=== PATIENT | female | born 1970 | race Caucasian/White ===

== ENCOUNTER 2019-03-07 17:57 | Emergency (ER) | payer OTHER ==
[2019-03-07] MEDS ORDERED: Sodium Chloride 0.9% 1000 ML 1,000 ML IV STA (18:22)
[2019-03-07] MEDS ORDERED: Sodium Chloride 0.9% 1000 ML 1,000 ML ONE ×2 (18:26→18:58)
--- NOTE | 2019-03-07 18:29 | ERPHSYRPT ---
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 DENIES HEADACHE, WEAKNESS, BLURRED VISION. STATES SYMPTOMS RESOLVED AFTER 2 HOURS. PATIENT COMPLAINS OF PRODUCTIVE COUGH WHITE SPUTUM X 3 WEEKS. Timing/Duration: today Severity: mild Character of Deficits: altered sensation, other (TRANSIENT BILATERAL FINGER TIP NUMBNESS) Deficits: no difficulties Baseline/Normal Cognition: alert oriented x 3 Current Cognition: alert oriented x 3 Baseline Gait: walks w/o assistance Associated Symptoms: other (PRODUCTIVE COUGH) Allergies/Adverse Reactions: No Known Drug Allergies Allergy (Verified 03/07/19 18:09) - Review of Systems Constitutional: No Fever, No Chills Eyes: No Symptoms Ears, Nose, & Throat: No Symptoms Respiratory: No Cough, No Dyspnea Cardiac: No Symptoms, No Chest Pain, No Edema, No Syncope Abdominal/Gastrointestinal: No Abdominal Pain, No Nausea, No Vomiting, No Diarrhea Genitourinary Symptoms: No Symptoms, No Dysuria Musculoskeletal: No Symptoms, No Back Pain, No Neck Pain Skin: No Rash Neurological: Parasthesia (OVER FINGER TIPS), No Dizziness, No Focal Weakness, No Sensory Changes Psychological: No Symptoms Endocrine: No Symptoms Hematologic/Lymphatic: No Symptoms All Other Systems: Reviewed and Negative - Past Medical History Pertinent Past Medical History: No - Past Surgical History Past Surgical History: Yes Female Surgical History: Tubal Ligation - Social History Smoking Status: Current every day smoker How long have you smoked: 30 years Exposure to second hand smoke: Yes Drug Use: none Patient Lives Alone: No - Female History Hx Now: No (tubal) - Nursing Vital Signs Nursing Vital Signs: Initial Vital Signs Temperature 100.0 F 03/07/19 18:01 Pulse Rate 112 H 03/07/19 18:01 Blood Pressure 159/96 03/07/19 18:01 O2 Sat by Pulse Oximetry 99 03/07/19 18:01 Pain Scale Pain Intensity 0 - Physical Exam General Appearance: no apparent distress, alert Eye Exam: bilateral eye: PERRL, EOMI Ears, Nose, Throat Exam: normal ENT inspection, moist mucous membranes Neck Exam: normal inspection, non-tender, supple Respiratory: normal breath sounds, lungs clear, airway intact, No respiratory distress Cardiovascular: regular rate/rhythm, No edema Gastrointestinal: soft, No tenderness, No distention Back Exam: normal inspection Extremity Exam: normal inspection, No pedal edema Peripheral Pulses: carotid (R): 2+, carotid (L): 2+, femoral (R): 2+, femoral (L ): 2+, dorsalis-pedis (R): 2+, dorsalis-pedis (L): 2+ 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, 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 Exam: normal hearing, normal speech, tongue midline Coordination/Gait: normal finger to nose, normal gait DTR: bicep (R): 2+, bicep (L): 2+, tricep (R): 2+, tricep (L): 2+, knee (R): 2+ , knee (L): 2+, ankle (R): 2+, ankle (L): 2+ Skin Exam: normal color, warm, dry, No rash SpO2: 99 - Course EKG Interpreted by Me: RATE, Sinus Rhythm, NORMAL AXIS, Other (RATE 71, LATERAL FLAT ST WAVE CHANGES) - Radiology Exams Chest X-ray Interpretation: Interpreted by me, Negative, No Infiltrates Ordered Tests: Active Orders 24 hr Category Date Time Status 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 STAT Care 03/07/19 18:22 Active EKG-ER Only STAT Care 03/07/19 18:22 Active IV Insertion STAT Care 03/07/19 18:22 Active CHEST 1 VIEW (PORTABLE) Stat Exams 03/07/19 19:59 Ordered BLOOD CULTURE Stat Lab 03/07/19 19:00 Received BMP Stat Lab 03/07/19 18:40 Completed CBC W DIFF Stat Lab 03/07/19 18:40 Completed Lactic Acid Stat Lab 03/07/19 20:48 Completed Lactic Acid Urgent Lab 03/07/19 18:35 Completed UA W/RFX UR CULTURE Stat Lab 03/07/19 18:40 Completed Urine Triage Profile Stat Lab 03/07/19 18:40 Completed VENOUS BLOOD GAS Stat Lab 03/07/19 18:35 Completed Medication Summary Generic Name Dose Route Start Last Admin Trade Name Jack PRN Reason Stop Dose Admin Sodium Chloride 1,000 mls @ 999 mls/hr 03/07/19 18:30 03/07/19 20:42 Sodium Chloride 0.9% 1000 Ml IV 03/07/19 20:30 Infused .Q1H1M GIULIA Infusion Discontinued Medications Generic Name Dose Route Start Last Admin Trade Name Jack PRN Reason Stop Dose Admin Acetaminophen 650 mg 03/07/19 20:00 03/07/19 20:02 Tylenol 325 Mg PO 03/07/19 20:01 650 mg STAT STA Administration Acetaminophen Confirm 03/07/19 20:01 Tylenol 325 Mg Administered 03/07/19 20:02 Dose 650 mg .ROUTE .STK-MED ONE Sodium Chloride 1,000 mls @ 999 mls/hr 03/07/19 18:22 03/07/19 19:36 Sodium Chloride 0.9% 1000 Ml IV 03/07/19 19:22 Infused .Q1H1M STA Infusion Ceftriaxone Sodium/Dextrose 1 g in 50 mls @ 100 mls/hr 03/07/19 19:55 20:30 Rocephin 1 Gm-D5w 50 Ml Bag IV 03/07/19 20:24 Infused STAT STA Infusion Ceftriaxone Sodium/Dextrose Confirm 03/07/19 19:59 Rocephin 1 Gm-D5w 50 Ml Bag Administered 03/07/19 20:00 Dose 1 g in 50 mls @ ud IV .STK-MED ONE Lab/Rad Data: Laboratory Result Diagrams 03/07/19 18:40 03/07/19 18:40 Laboratory Results 03/07/19 03/07/19 03/07/19 Range/Units 20:48 18:40 18:40 WBC (4.0-10.5) K/mm3 RBC (4.1-5.4) M/mm3 Hgb (12.0-16.0) gm/dl Hct (35-47) % MCV (78-100) fl MCH (26-32) pg MCHC (32-36) g/dl RDW (11.5-14.0) % Plt Count (150-450) K/mm3 MPV (6-9.5) fl Gran % (36.0-66.0) % Eos # (Auto) (0-0.5) Absolute Lymphs (auto) (1.0-4.6) Absolute Monos (auto) (0.0-1.3) Lymphocytes % (24.0-44.0) % Monocytes % (0.0-12.0) % Eosinophils % (0.00-5.0) % Basophils % (0.0-0.4) % Absolute Granulocytes (1.4-6.9) Basophils # (0-0.4) pO2/FiO2 Ratio % VBG pH (7.32-7.42) VBG pCO2 at Pat Temp (42-55) mm/Hg VBG pO2 at Pat Temp (25-40) mm/Hg VBG HCO3 (22-28) meq/L VBG O2 Sat (Wendy) (95-100) VBG Base Excess (-2.0-2.0) VBG Hemoglobin VBG Carboxyhemoglobin (0.0-6.9) % T HGB POC Potassium (3.5-5.1) Sodium (137-145) mmol/L Potassium (3.5-5.1) mmol/L Chloride (98-107) mmol/L Carbon Dioxide (22-30) mmol/L Anion Gap (5-15) MEQ/L BUN (7-17) mg/dL Creatinine (0.52-1.04) mg/dL Estimated GFR ML/MIN Glucose (74-106) mg/dL Lactic Acid 1.4 (0.4-2.0) Calcium (8.4-10.2) mg/dL Urine Color YELLOW (YELLOW) Urine Appearance CLEAR (CLEAR) Urine pH 6.0 (5-6) Ur Specific [place] 1.012 (1.005-1.025) Urine Protein NEGATIVE (Negative) Urine Ketones NEGATIVE (NEGATIVE) Urine Blood MODERATE (0-5) Joel/ul Urine Nitrite NEGATIVE (NEGATIVE) Urine Bilirubin NEGATIVE (NEGATIVE) Urine Urobilinogen NEGATIVE (0-1) mg/dL Ur Leukocyte Esterase NEGATIVE (NEGATIVE) Urine WBC (Auto) 0-2 (0-5) /HPF Urine RBC (Auto) 0-2 (0-2) /HPF U Epithel Cells (Auto) RARE (FEW) /HPF Urine Bacteria (Auto) RARE (NEGATIVE) /HPF Urine Mucus (Auto) SLIGHT (NEGATIVE) /HPF Urine Culture Reflexed NO (NO) Urine Glucose NEGATIVE (NEGATIVE) mg/dL Urine Opiates Level NEGATIVE (NEGATIVE) Ur Methadone NEGATIVE (NEGATIVE) Urine Barbiturates NEGATIVE (NEGATIVE) Ur Phencyclidine (PCP) NEGATIVE (NEGATIVE) Urine Amphetamine NEGATIVE (NEGATIVE) U Benzodiazepine Level NEGATIVE (NEGATIVE) Urine Cocaine NEGATIVE (NEGATIVE) Urine Marijuana (THC) NEGATIVE (NEGATIVE) 03/07/19 03/07/19 03/07/19 Range/Units 18:40 18:40 18:35 WBC 14.0 H (4.0-10.5) K/mm3 RBC 4.30 (4.1-5.4) M/mm3 Hgb 13.2 (12.0-16.0) gm/dl Hct 40.4 (35-47) % MCV 94.0 (78-100) fl MCH 30.7 (26-32) pg MCHC 32.7 (32-36) g/dl RDW 12.9 (11.5-14.0) % Plt Count 172 (150-450) K/mm3 MPV 11.4 H (6-9.5) fl Gran % 87.2 H (36.0-66.0) % Eos # (Auto) 0.05 (0-0.5) Absolute Lymphs (auto) 1.01 (1.0-4.6) Absolute Monos (auto) 0.70 (0.0-1.3) Lymphocytes % 7.2 L (24.0-44.0) % Monocytes % 5.0 (0.0-12.0) % Eosinophils % 0.4 (0.00-5.0) % Basophils % 0.2 (0.0-0.4) % Absolute Granulocytes 12.17 H (1.4-6.9) Basophils # 0.03 (0-0.4) pO2/FiO2 Ratio 21.0 % VBG pH 7.53 H (7.32-7.42) VBG pCO2 at Pat Temp 28 L (42-55) mm/Hg VBG pO2 at Pat Temp 60 H (25-40) mm/Hg VBG HCO3 23.4 (22-28) meq/L VBG O2 Sat (Wendy) 96.4 (95-100) VBG Base Excess 1.8 (-2.0-2.0) VBG Hemoglobin 13.9 VBG Carboxyhemoglobin 6.9 (0.0-6.9) % T HGB POC Potassium 3.6 (3.5-5.1) Sodium 141 (137-145) mmol/L Potassium 3.7 (3.5-5.1) mmol/L Chloride 105 (98-107) mmol/L Carbon Dioxide 22 (22-30) mmol/L Anion Gap 16.8 H (5-15) MEQ/L BUN 10 (7-17) mg/dL Creatinine 0.50 L (0.52-1.04) mg/dL Estimated GFR > 60.0 ML/MIN Glucose 144 H (74-106) mg/dL Lactic Acid (0.4-2.0) Calcium 9.3 (8.4-10.2) mg/dL Urine Color (YELLOW) Urine Appearance (CLEAR) Urine pH (5-6) Ur Specific [place] (1.005-1.025) Urine Protein (Negative) Urine Ketones (NEGATIVE) Urine Blood (0-5) Joel/ul Urine Nitrite (NEGATIVE) Urine Bilirubin (NEGATIVE) Urine Urobilinogen (0-1) mg/dL Ur Leukocyte Esterase (NEGATIVE) Urine WBC (Auto) (0-5) /HPF Urine RBC (Auto) (0-2) /HPF U Epithel Cells (Auto) (FEW) /HPF Urine Bacteria (Auto) (NEGATIVE) /HPF Urine Mucus (Auto) (NEGATIVE) /HPF Urine Culture Reflexed (NO) Urine Glucose (NEGATIVE) mg/dL Urine Opiates Level (NEGATIVE) Ur Methadone (NEGATIVE) Urine Barbiturates (NEGATIVE) Ur Phencyclidine (PCP) (NEGATIVE) Urine Amphetamine (NEGATIVE) U Benzodiazepine Level (NEGATIVE) Urine Cocaine (NEGATIVE) Urine Marijuana (THC) (NEGATIVE) 03/07/19 Range/Units 18:35 WBC (4.0-10.5) K/mm3 RBC (4.1-5.4) M/mm3 Hgb (12.0-16.0) gm/dl Hct (35-47) % MCV (78-100) fl MCH (26-32) pg MCHC (32-36) g/dl RDW (11.5-14.0) % Plt Count (150-450) K/mm3 MPV (6-9.5) fl Gran % (36.0-66.0) % Eos # (Auto) (0-0.5) Absolute Lymphs (auto) (1.0-4.6) Absolute Monos (auto) (0.0-1.3) Lymphocytes % (24.0-44.0) % Monocytes % (0.0-12.0) % Eosinophils % (0.00-5.0) % Basophils % (0.0-0.4) % Absolute Granulocytes (1.4-6.9) Basophils # (0-0.4) pO2/FiO2 Ratio % VBG pH (7.32-7.42) VBG pCO2 at Pat Temp (42-55) mm/Hg VBG pO2 at Pat Temp (25-40) mm/Hg VBG HCO3 (22-28) meq/L VBG O2 Sat (Wendy) (95-100) VBG Base Excess (-2.0-2.0) VBG Hemoglobin VBG Carboxyhemoglobin (0.0-6.9) % T HGB POC Potassium (3.5-5.1) Sodium (137-145) mmol/L Potassium (3.5-5.1) mmol/L Chloride (98-107) mmol/L Carbon Dioxide (22-30) mmol/L Anion Gap (5-15) MEQ/L BUN (7-17) mg/dL Creatinine (0.52-1.04) mg/dL Estimated GFR ML/MIN Glucose (74-106) mg/dL Lactic Acid 3.2 H (0.4-2.0) Calcium (8.4-10.2) mg/dL Urine Color (YELLOW) Urine Appearance (CLEAR) Urine pH (5-6) Ur Specific [place] (1.005-1.025) Urine Protein (Negative) Urine Ketones (NEGATIVE) Urine Blood (0-5) Joel/ul Urine Nitrite (NEGATIVE) Urine Bilirubin (NEGATIVE) Urine Urobilinogen (0-1) mg/dL Ur Leukocyte Esterase (NEGATIVE) Urine WBC (Auto) (0-5) /HPF Urine RBC (Auto) (0-2) /HPF U Epithel Cells (Auto) (FEW) /HPF Urine Bacteria (Auto) (NEGATIVE) /HPF Urine Mucus (Auto) (NEGATIVE) /HPF Urine Culture Reflexed (NO) Urine Glucose (NEGATIVE) mg/dL Urine Opiates Level (NEGATIVE) Ur Methadone (NEGATIVE) Urine Barbiturates (NEGATIVE) Ur Phencyclidine (PCP) (NEGATIVE) Urine Amphetamine (NEGATIVE) U Benzodiazepine Level (NEGATIVE) Urine Cocaine (NEGATIVE) Urine Marijuana (THC) (NEGATIVE) - Progress Progress Note: 03/07/19 21:11 IV NORMAL SALINE 1 LITER/HR X 2, INITIAL LACTIC 3.2, REPEAT LACTIC ACID 1.4 AFTER HYDRATION. AFTER 2 SETS OF BLOOD CULTURES ROCEPHIN 1GM IVPB 03/07/19 21:13 VENOUS BLOOD GAS, PH-7.53, PCO2-28 Counseled pt/family regarding: lab results, need for follow-up, rad results - Departure Departure Disposition: Home Clinical Impression: ACUTE BRONCHITIS, HYPERVENTILATION Condition: Stable Critical Care Time: No Referrals: Provider,Unknown [NON-STAFF PHY W/O PRIVILEGES] - Additional Instructions: ANTIBIOTIC CEFDINIR 300MG TWICE DAILY FOR 10 DAYS. DRINK PLENTY OF FLUIDS. TYLENOL OR MOTRIN FOR FEVER NEEDED. CONSULT YOUR PRIMARY CARE PROVIDER FOR FOLLOWUP. Prescriptions: Cefdinir [Omnicef] 300 mg PO BID #20 capsule
[2019-03-07] MEDS ORDERED: Sodium Chloride 0.9% 1000 ML 1,000 ML IV SCH (18:30)
[2019-03-07 18:40] LABS: VBG BASE EXCESS 1.8 (-2.0-2.0); VBG CARBOXYHEMOGLOBIN 6.9 % T HGB (0.0-6.9); VBG HCO3- 23.4 meq/L (22-28); VBG HEMOGLOBIN 13.9; VBG O2 SATURATION 96.4 (95-100); VBG POTASSIUM 3.6 (3.5-5.1); VBG pH 7.53 (7.32-7.42)
[2019-03-07 18:42] LABS: Lactic Acid 3.2 (0.4-2.0)
[2019-03-07 18:45] LABS: BASOPHIL % 0.2 % (0.0-0.4); Basophil (Absolute #) 0.03 (0-0.4); Eosinophil % 0.4 % (0.00-5.0); Eosinophil (Absolute #) 0.05 (0-0.5); Granulocyte Absolute (ANC) 12.17 (1.4-6.9); Granulocytes % 87.2 % (36.0-66.0); Hematocrit 40.4 % (35-47); Hemoglobin 13.2 gm/dl (12.0-16.0); Lymphocyte (Absolute #) 1.01 (1.0-4.6); Lymphocytes % 7.2 % (24.0-44.0); Mean Corpuscular Hemoglobin 30.7 pg (26-32); Mean Corpuscular Hgb Concent. 32.7 g/dl (32-36); Mean Platelet Volume 11.4 fl (6-9.5); Platelet Count 172 K/mm3 (150-450); Red Cell Distribution Width 12.9 % (11.5-14.0)
[2019-03-07 18:53] LABS: Appearance CLEAR (CLEAR); Bacteria RARE /HPF (NEGATIVE); Bilirubin NEGATIVE (NEGATIVE); Blood MODERATE Ery/ul (0-5); Epithelial Cells RARE /HPF (FEW); Glucose NEGATIVE (NEGATIVE); Ketones NEGATIVE (NEGATIVE); Leukocyte Esterase NEGATIVE (NEGATIVE); Mucus SLIGHT /HPF (NEGATIVE); Nitrite NEGATIVE (NEGATIVE); Protein,Urine Dip NEGATIVE (Negative); RBC 0-2 /HPF (0-2); Specific Gravity 1.012 (1.005-1.025); Urobilinogen NEGATIVE mg/dL (0-1); WBC 0-2 /HPF (0-5)
[2019-03-07 18:57] LABS: ANION GAP 16.8 MEQ/L (5-15); BLOOD UREA NITROGEN 10 mg/dL (7-17); CHLORIDE 105 mmol/L (98-107); Calcium 9.3 mg/dL (8.4-10.2); Carbon Dioxide 22 mmol/L (22-30); Glucose 144 mg/dL (74-106); Potassium 3.7 mmol/L (3.5-5.1); SODIUM 141 mmol/L (137-145)
[2019-03-07 19:05] LABS: Amphetamine,Urine NEGATIVE (NEGATIVE); Barbiturate,Urine NEGATIVE (NEGATIVE); Benzodiazepine,Urine NEGATIVE (NEGATIVE); Cocaine,Urine NEGATIVE (NEGATIVE); Methadone,Urine NEGATIVE (NEGATIVE); Opiate,Urine NEGATIVE (NEGATIVE); PCP,Urine NEGATIVE (NEGATIVE); THC,Urine NEGATIVE (NEGATIVE)
[2019-03-07] MEDS ORDERED: ROCEPHIN 1 Gm-D5w 50 ml Bag** 1 G/50 ML IVPB IV STA (19:55)
[2019-03-07] MEDS ORDERED: ROCEPHIN 1 Gm-D5w 50 ml Bag** 1 G/50 ML IVPB IV ONE (19:59)
[2019-03-07] MEDS ORDERED: TYLENOL 325 MG PO STA (20:00)
[2019-03-07] MEDS ORDERED: TYLENOL 325 MG ONE (20:01)
[2019-03-07 22:33] VITALS: BP 102/59; PULSE 74; O2SAT 95
--- NOTE | 2019-03-08 09:19 | XRAY ---
Indication: Productive cough. Comparison: None Portable chest demonstrate normal heart, lungs, and bony thorax with a few left perihilar calcified granulomas.
== END 2019-03-07 22:38 | disposition home or self-care (01) ==
LOC: ED 17:57
DX: J20.9 Acute bronchitis, unspecified (principal); R06.4 Hyperventilation; Z72.0 Tobacco use
CPT/HCPCS: 36415; 71045; 80048; 80307; 81001; 82805; 83605; 85025; 87040; 93005; 93041; 96360; 96361; 96365; 99284; J0696; A9270-GY

== ENCOUNTER 2020-06-16 19:20 | Emergency (ER) | payer MEDICAID, OTHER ==
--- NOTE | 2020-06-16 19:22 | ERPHSYRPT ---
- History of Present Illness Time Seen by Provider: 06/16/20 19:21 Source: patient, family Exam Limitations: no limitations Physician History: There is a 50-year-old white female who has a history of hypothyroidism and hypertension who today at work felt as though she was going to pass out. She also has associated headache. She became pale and diaphoretic at work. She denies chest pain and she does not have shortness of breath. Patient states within the last couple months she has had a thyroid checked which showed normal levels. Patient describes the headache as being sharp from the occiput of the base of her neck to the forehead. Patient systolic blood pressure was over 200 when checked at work. Patient's heart rate is in the 50s but did dip down into the high 40s on the monitor while observing and performing my history and physical exam. Patient has no abdominal pain. She has no shortness of breath, no cough no vomiting or diarrhea. Timing/Duration: today Severity: moderate Associated Symptoms: diaphoresis, headaches Allergies/Adverse Reactions: No Known Drug Allergies Allergy (Verified 06/16/20 19:43) Home Medications: Levothyroxine Sodium 1 tab PO DAILY 06/16/20 [History] Propranolol HCl [Propranolol HCl ER] 1 cap PO DAILY 06/16/20 [History] Travel Risk - International Travel Have you traveled outside of the country in past 3 weeks: No - Coronavirus Screening Are you exhibiting any of the following symptoms?: Yes Symptoms: Headaches/Body Aches/Fatigue Close contact with a COVID-19 positive Pt in past 14-21 Days: No - Review of Systems Constitutional: No Symptoms Eyes: No Symptoms Ears, Nose, & Throat: No Symptoms Respiratory: No Symptoms Cardiac: No Symptoms Abdominal/Gastrointestinal: No Symptoms Genitourinary Symptoms: No Symptoms Musculoskeletal: No Symptoms Skin: No Symptoms Neurological: Headache Psychological: No Symptoms Endocrine: No Symptoms Hematologic/Lymphatic: No Symptoms Immunological/Allergic: No Symptoms All Other Systems: Reviewed and Negative - Past Medical History Pertinent Past Medical History: No Neurological History: No Pertinent History ENT History: No Pertinent History Cardiac History: Hypertension Respiratory History: No Pertinent History Endocrine Medical History: Hypothyroidism Musculoskeletal History: No Pertinent History GI Medical History: No Pertinent History History: No Pertinent History Psycho-Social History: No Pertinent History Female Reproductive Disorders: No Pertinent History - Past Surgical History Past Surgical History: Yes Neuro Surgical History: No Pertinent History Cardiac: No Pertinent History Respiratory: No Pertinent History Gastrointestinal: No Pertinent History Genitourinary: No Pertinent History Musculoskeletal: No Pertinent History Female Surgical History: Tubal Ligation - Social History Smoking Status: Current every day smoker How long have you smoked: 30 years Exposure to second hand smoke: Yes Drug Use: none Patient Lives Alone: No - Nursing Vital Signs Nursing Vital Signs: Initial Vital Signs Temperature 97.6 F 06/16/20 19:20 Pulse Rate 58 L 06/16/20 19:20 Respiratory Rate 16 06/16/20 19:20 Blood Pressure 158/106 06/16/20 19:20 O2 Sat by Pulse Oximetry 98 06/16/20 19:20 Pain Scale Pain Intensity 9 - Physical Exam General Appearance: mild distress, alert, anxiety Eye Exam: PERRL/EOMI, eyes nml inspection Ears, Nose, Throat Exam: normal ENT inspection, moist mucous membranes Neck Exam: normal inspection, non-tender, supple, full range of motion Respiratory Exam: normal breath sounds, lungs clear, airway intact, No chest tenderness, No respiratory distress Cardiovascular Exam: regular rate/rhythm, normal heart sounds, normal peripheral pulses Gastrointestinal/Abdomen Exam: soft, normal bowel sounds, No tenderness Pelvic Exam: not done Rectal Exam: not done Back Exam: normal inspection Extremity Exam: normal inspection Neurologic Exam: alert, oriented x 3, 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 Patient had a EKG done on 03/07/2019. The only difference is on that EKG there is left axis deviation. That is now resolved on the current EKG) Ordered Tests: Active Orders 24 hr Category Date Time Status Accucheck STAT Care 06/16/20 19:56 Active Operating Room Technician STAT Care 06/16/20 19:58 Active EKG-ER Only STAT Care 06/16/20 19:56 Active IV Insertion STAT Care 06/16/20 19:56 Active NPO (ED) STAT Care 06/16/20 19:57 Active Pulse Oximetry (ED) STAT Care 06/16/20 19:56 Active HEAD WITHOUT CONTRAST [CT] Stat Exams 06/16/20 19:57 Taken CBC W DIFF Stat Lab 06/16/20 19:56 Completed CMP Stat Lab 06/16/20 18:00 Completed Manual Differential NC Stat Lab 06/16/20 19:56 Completed T4 (Thyroxine) Stat Lab 06/16/20 18:00 Completed TROPONIN Q3H Lab 06/16/20 20:15 Completed TROPONIN Q3H Lab 06/16/20 23:15 Ordered TROPONIN Q3H Lab 06/17/20 02:15 Ordered TROPONIN Q3H Lab 06/17/20 05:15 Ordered TROPONIN Q3H Lab 06/17/20 08:15 Ordered TSH [TSH, 3RD Generation] Stat Lab 06/16/20 18:00 Completed UA W/RFX UR CULTURE Stat Lab 06/16/20 19:57 Completed Medication Summary Discontinued Medications Generic Name Dose Route Start Last Admin Trade Name Freq PRN Reason Stop Dose Admin Hydromorphone HCl 1 mg 06/16/20 21:39 06/16/20 21:51 Hydromorphone 1 Mg/Ml Ampule IV 06/16/20 21:40 1 mg STAT ONE Administration Hydromorphone HCl Confirm 06/16/20 21:50 Hydromorphone 1 Mg/Ml Ampule Administered 06/16/20 21:51 Dose 1 mg .ROUTE .STK-MED ONE Morphine Sulfate 4 mg 06/16/20 20:07 06/16/20 20:10 Morphine Sulfate 4 Mg Inj IV 06/16/20 20:08 4 mg STAT ONE Administration Morphine Sulfate Confirm 06/16/20 20:08 Morphine Sulfate 4 Mg Inj Administered 06/16/20 20:09 Dose 4 mg .ROUTE .STK-MED ONE Ondansetron HCl 4 mg 06/16/20 20:07 06/16/20 20:10 Zofran 4 Mg/2 Ml Vial IV 06/16/20 20:08 4 mg STAT ONE Administration Ondansetron HCl Confirm 06/16/20 20:08 Zofran 4 Mg/2 Ml Vial Administered 06/16/20 20:09 Dose 4 mg .ROUTE .STK-MED ONE Lab/Rad Data: Laboratory Result Diagrams 06/16/20 19:56 08/03/20 18:00 Laboratory Results 06/16/20 06/16/20 06/16/20 Range/Units 20:15 19:57 19:56 WBC 9.8 (4.0-10.5) K/mm3 RBC 4.69 (4.1-5.4) M/mm3 Hgb 14.5 (12.0-16.0) gm/dl Hct 44.3 (35-47) % MCV 94.5 (78-100) fl MCH 30.9 (26-32) pg MCHC 32.7 (32-36) g/dl RDW 12.9 (11.5-14.0) % Plt Count 204 (150-450) K/mm3 MPV 11.3 H (7.5-11.0) fl Segmented Neutrophils 56 (36.0-66.0) % Lymphocytes (Manual) 38 (24-44) % Monocytes (Manual) 6 (0.0-12.0) % Platelet Estimate NORMAL (NORMAL) RBC Morphology NORMAL Sodium (137-145) mmol/L Potassium (3.5-5.1) mmol/L Chloride (98-107) mmol/L Carbon Dioxide (22-30) mmol/L Anion Gap (5-15) MEQ/L BUN (7-17) mg/dL Creatinine (0.52-1.04) mg/dL Estimated GFR ML/MIN Glucose (74-106) mg/dL Calcium (8.4-10.2) mg/dL Total Bilirubin (0.2-1.3) mg/dL AST (14-36) U/L ALT (0-35) U/L Alkaline Phosphatase (38-126) U/L Troponin I < 0.012 (0.000-0.034) ng/mL Serum Total Protein (6.3-8.2) g/dL Albumin (3.5-5.0) g/dL Thyroxine (T4) (5.53-10.96) ug/dL TSH 3rd Generation (0.47-4.68) mIU/L Urine Color YELLOW (YELLOW) Urine Appearance SLIGHTLY CLOUDY (CLEAR) Urine pH 5.0 (5-6) Ur Specific [place] 1.021 (1.005-1.025) Urine Protein NEGATIVE (Negative) Urine Ketones NEGATIVE (NEGATIVE) Urine Blood NEGATIVE (0-5) Joel/ul Urine Nitrite NEGATIVE (NEGATIVE) Urine Bilirubin NEGATIVE (NEGATIVE) Urine Urobilinogen NEGATIVE (0-1) mg/dL Ur Leukocyte Esterase NEGATIVE (NEGATIVE) Urine WBC (Auto) 6-10 (0-5) /HPF Urine RBC (Auto) 0-2 (0-2) /HPF U Epithel Cells (Auto) RARE (FEW) /HPF Urine Bacteria (Auto) NONE (NEGATIVE) /HPF Urine Mucus (Auto) SLIGHT (NEGATIVE) /HPF Urine Culture Reflexed NO (NO) Urine Glucose NEGATIVE (NEGATIVE) mg/dL 06/16/20 06/16/20 Range/Units 18:00 18:00 WBC (4.0-10.5) K/mm3 RBC (4.1-5.4) M/mm3 Hgb (12.0-16.0) gm/dl Hct (35-47) % MCV (78-100) fl MCH (26-32) pg MCHC (32-36) g/dl RDW (11.5-14.0) % Plt Count (150-450) K/mm3 MPV (7.5-11.0) fl Segmented Neutrophils (36.0-66.0) % Lymphocytes (Manual) (24-44) % Monocytes (Manual) (0.0-12.0) % Platelet Estimate (NORMAL) RBC Morphology Sodium 140 (137-145) mmol/L Potassium 3.9 (3.5-5.1) mmol/L Chloride 103 (98-107) mmol/L Carbon Dioxide 30 (22-30) mmol/L Anion Gap 10.4 (5-15) MEQ/L BUN 18 H (7-17) mg/dL Creatinine 0.58 (0.52-1.04) mg/dL Estimated GFR > 60.0 ML/MIN Glucose 110 H (74-106) mg/dL Calcium 9.3 (8.4-10.2) mg/dL Total Bilirubin 0.40 (0.2-1.3) mg/dL AST 27 (14-36) U/L ALT 13 (0-35) U/L Alkaline Phosphatase 62 (38-126) U/L Troponin I (0.000-0.034) ng/mL Serum Total Protein 7.6 (6.3-8.2) g/dL Albumin 4.4 (3.5-5.0) g/dL Thyroxine (T4) 11.1 H (5.53-10.96) ug/dL TSH 3rd Generation < 0.015 L (0.47-4.68) mIU/L Urine Color (YELLOW) Urine Appearance (CLEAR) Urine pH (5-6) Ur Specific [place] (1.005-1.025) Urine Protein (Negative) Urine Ketones (NEGATIVE) Urine Blood (0-5) Joel/ul Urine Nitrite (NEGATIVE) Urine Bilirubin (NEGATIVE) Urine Urobilinogen (0-1) mg/dL Ur Leukocyte Esterase (NEGATIVE) Urine WBC (Auto) (0-5) /HPF Urine RBC (Auto) (0-2) /HPF U Epithel Cells (Auto) (FEW) /HPF Urine Bacteria (Auto) (NEGATIVE) /HPF Urine Mucus (Auto) (NEGATIVE) /HPF Urine Culture Reflexed (NO) Urine Glucose (NEGATIVE) mg/dL - Progress Progress: improved, pain not gone completely, re-examined Progress Note: 06/16/20 22:[address] Walker, the radiologist regarding the CAT scan findings. The patient has a small amount of blood near the brainstem. I reviewed the findings with the patient. Again, she denies any trauma and she is not on any blood thinning medicines. I am awaiting the final read port from the radiologist. The patient prefers to go to [facility] if there is neurology available and if not she would like to be transferred to [place]. 06/16/20 22:27 Final read out CAT scan of head from Dr. Walker, the radiologist, reviewed reveals tiny acute blood in the third and fourth ventricles without hydrocephalus and a tiny amount of blood around the brainstem. There is no mass-effect and there is no midline shift. There also is dense basilar artery concerning for possible occlusion. 06/16/20 22:[address] Banegas who is the hospitalist on-call at [facility]. After discussion of the patient history, condition, laboratory work-up and radiographic findings, we both agree that the patient would be best served at a higher level of care in [place]. 06/16/20 23:00 I spoke with neurosurgeon Dr. Perez of [facility]. I reviewed the patient history, condition, laboratory data and Dr. Perez states that they can care for this patient at [facility]. Dr. Banegas will be contacted and we will make arranges for transfer if he agrees. 06/16/20 23:13 Dr. Banegas called back and he accepts the patient in transfer. Counseled pt/family regarding: lab results, diagnosis, need for follow-up, rad results - Departure Departure Disposition: Transfer Clinical Impression: Intracranial hemorrhage, Hyperthyroidism Condition: Stable Critical Care Time: Yes Critical Care Time(excluding separately billable procedures): Critical 30-74 mins Referrals: DIPIKA WEIR MD [Primary Care Provider] -
[2020-06-16 20:06] LABS: Hematocrit 44.3 % (35-47); Hemoglobin 14.5 gm/dl (12.0-16.0); Mean Cell Volume 94.5 fl (78-100); Mean Corpuscular Hemoglobin 30.9 pg (26-32); Mean Corpuscular Hgb Concent. 32.7 g/dl (32-36); Mean Platelet Volume 11.3 fl (7.5-11.0); Platelet Count 204 K/mm3 (150-450); Red Blood Count 4.69 M/mm3 (4.1-5.4); Red Cell Distribution Width 12.9 % (11.5-14.0); White Blood Count 9.8 K/mm3 (4.0-10.5)
[2020-06-16] MEDS ORDERED: MORPHINE SULFATE 4 MG INJ ONE (20:08)
[2020-06-16] MEDS ORDERED: Zofran 4 MG/2 ML VIAL ONE (20:08)
[2020-06-16] MEDS: MORPHINE SULFATE 4 MG INJ IV ONE (20:10)
[2020-06-16] MEDS: Zofran 4 MG/2 ML VIAL IV ONE (20:10)
[2020-06-16 20:23] LABS: ALBUMIN 4.4 g/dL (3.5-5.0); ALKALINE PHOSPHATASE 62 U/L (38-126); ANION GAP 10.4 MEQ/L (5-15); BLOOD UREA NITROGEN 18 mg/dL (7-17); CHLORIDE 103 mmol/L (98-107); Calcium 9.3 mg/dL (8.4-10.2); Carbon Dioxide 30 mmol/L (22-30); Creatinine 1 0.58 mg/dL (0.52-1.04); Glucose 110 mg/dL (74-106); Potassium 3.9 mmol/L (3.5-5.1); SGOT/AST 27 U/L (14-36); SGPT/ALT 13 U/L (0-35); SODIUM 140 mmol/L (137-145); Total Protein 7.6 g/dL (6.3-8.2)
[2020-06-16 20:38] LABS: Lymphocytes 38 % (24-44); Monocyte 6 % (0.0-12.0); Neutrophils 56 % (36.0-66.0); Platelet Estimate NORMAL (NORMAL); Total Cells Counted 100
[2020-06-16 21:18] LABS: T4 (Thyroxine) 11.1 ug/dL (5.53-10.96); TSH, 3RD Generation < 0.015 mIU/L (0.47-4.68)
[2020-06-16] MEDS ORDERED: Hydromorphone 1 mg/ml Ampule ONE (21:50)
[2020-06-16] MEDS: Hydromorphone 1 mg/ml Ampule IV ONE (21:51)
[2020-06-16 22:00] LABS: Appearance SLIGHTLY CLOUDY (CLEAR); Bilirubin NEGATIVE (NEGATIVE); Blood NEGATIVE Ery/ul (0-5); Epithelial Cells RARE /HPF (FEW); Glucose NEGATIVE (NEGATIVE); Ketones NEGATIVE (NEGATIVE); Leukocyte Esterase NEGATIVE (NEGATIVE); Mucus SLIGHT /HPF (NEGATIVE); Nitrite NEGATIVE (NEGATIVE); Protein,Urine Dip NEGATIVE (Negative); RBC 0-2 /HPF (0-2); Specific Gravity 1.021 (1.005-1.025); Urobilinogen NEGATIVE mg/dL (0-1)
[2020-06-17 00:37] VITALS: BP 138/87; PULSE 63; O2SAT 97
--- NOTE | 2020-06-17 09:08 | XRAY ---
Indication: Severe headache. Near syncope. Pale and diaphoretic. Multiple contiguous axial images obtained through the head without contrast. Comparison: None Ventriculosulcal pattern appears symmetric. Basilar artery appears dense concerning for occlusion. Third and fourth ventricle demonstrates small focus of hyperdensities concerning for hemorrhage. There is also tiny blood around the brainstem/perimesencephalic cistern. No hydrocephalus, mass effect, or midline shifting. Both cerebellar tonsils protrude through the foramen magnum. Hoskins-white matter differentiation preserved. Bony calvarium intact. Visualized paranasal sinuses and mastoid air cells are clear. Impression: 1. 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 2. Small interventricular hemorrhage in third/fourth ventricles without hydrocephalus. Also tiny hemorrhage in the perimesencephalic cistern. Query trauma, recent lumbar puncture, Coumadin/warfarin therapy, or leaking aneurysm. 3. Incidental lown lying cerebellar tonsils. Comment: Telephone report was given to ordering clinician, Dr. Gonzalez at 2200 hrs. on June 16, 2020.
== END 2020-06-17 00:24 | disposition short-term general hospital (02) ==
LOC: ED 19:20
DX: I62.9 Nontraumatic intracranial hemorrhage, unspecified (principal); E05.90 Thyrotoxicosis, unspecified without thyrotoxic crisis or storm; I10 Essential (primary) hypertension; R51 Headache
CPT/HCPCS: 36000; 36415; 70450; 80053; 81001; 82962; 84436; 84443; 84484; 85025; 93005; 93041; 94760; 96374; 96375; 99285; 99291; J1170; J2270; J2405

== ENCOUNTER 2021-10-26 08:35 | Day surgery (SDC) | payer OTHER ==
[2021-10-26] MEDS ORDERED: Lactated Ringers 1,000 ML IV ONE ×2 (09:30→12:00)
[2021-10-26] MEDS ORDERED: Lactated Ringers 1,000 ML IV SCH (09:30)
[2021-10-26] MEDS ORDERED: DIPRIVAN 200 MG/20 ML IV ONE ×3 (11:43→12:21)
[2021-10-26] MEDS ORDERED: Versed 2 MG/2 ML Injection ONE (11:43)
[2021-10-26 13:48] VITALS: BP 119/91; PULSE 63; O2SAT 95
--- NOTE | 2021-10-27 08:25 | HP ---
HISTORY OF PRESENT ILLNESS: This is a patient who presents with "a knot in her deep epigastric area" and she states she has had trouble getting some foods down. It feels like the food is sticking. However, she is not having any problems swallowing liquid. She also has some occasional epigastric pain as well. She has chronic occasional headaches and has a history of brain aneurysm in the past. She has no shortness of breath, no fever, no lower abdominal pain, no flank pain, no blood in her stool. She has not had a colonoscopy prior. PAST MEDICAL/SURGICAL HISTORY: Brain aneurysm. Hypertension. Hypothyroidism. Anemia. Tubal ligation. MEDICATIONS: Aspirin, propranolol. ALLERGIES: NKDA. SOCIAL HISTORY: Occasional alcohol. Positive tobacco use. FAMILY HISTORY: Hypertension, diabetes, chronic obstructive pulmonary disease. PHYSICAL EXAMINATION: GENERAL: No acute distress. CVS: Regular rate and rhythm. PULMONARY: Nonlabored. ABDOMEN: Soft, nontender, nondistended. EXTREMITIES: Normal. DIAGNOSES: 1) Dysphagia. 2) Epigastric pain. 3) Colonoscopy for screening. PLAN: EGD with possible dilatation and screening colonoscopy.
--- NOTE | 2021-11-05 09:40 | OP ---
PROCEDURE DATE/TIME: 10/26/2021 1143 PREOPERATIVE DIAGNOSES: 1) Dysphagia. 2) Due for screening colonoscopy. POSTOPERATIVE DIAGNOSES: 1) Peptic ulcer disease. 2) Inflammatory appearing duodenal polyp. 3) Small hiatal hernia. 4) Moderate internal and external hemorrhoidal disease. 5) Mild diverticulosis. 6) Colonic polyps. PROCEDURES: 1) EGD with biopsy. 2) Colonoscopy to cecum with cold forceps polypectomy x1 and cold snare polypectomy x1. PROCEDURE PERFORMED BY: Olivia Edwards M.D. ANESTHESIA: MAC. ESTIMATED BLOOD LOSS: Minimal. COMPLICATIONS: None. SPECIMENS: 1) Duodenal inflammatory polypoid lesion biopsy. 2) Irregular gastric mucosa biopsy. 3) Splenic flexure polyp. 4) Descending colon polyp. HISTORY: This is a patient who presents for EGD and colonoscopy. She is having dysphagia. Her upper GI study has been reviewed. She does not have any obvious strictures. However, she continues to have symptoms. Risks, benefits, alternatives discussed with her. Her results discussed with her. She was seen preoperatively. Her H&P and consent were reviewed and confirmed. DESCRIPTION OF PROCEDURE: She is brought back to the endoscopy suite, laid in the left lateral decubitus position. A complete time out performed. The scope gently introduced in the mouth, oropharynx, down into the esophagus, stomach and duodenum. There was what appeared to be an inflammatory duodenal polyp this had a broad base and would be a high risk lesion to remove endoscopically and so I biopsied this to determine a pathology first. Biopsies were taken with good bite. These were sent to pathology and the site was hemostatic after biopsy. As the scope was withdrawn back into the stomach the patient had further inflammation. She had duodenal ulcer. She also had some gastritis and duodenitis. We took biopsies in the gastric antrum where there were inflammatory mucosa as well as in her gastric body where the tissue appeared to be slightly irregular as well. There were no signs of any obvious malignancy in her stomach. On retroflex view the patient has a very subtle weakness at her gastroesophageal junction suggestive of a trace to small hiatal hernia but there is no significant large hernia here. The scope was then unretroflexed. All biopsy sites were hemostatic. The scope was then withdrawn into the distal esophagus and the esophagus was closely inspected. I did not see any issues with regards to the mucosa of the esophagus and then the esophagus itself appeared to be widely patent with no sign of stricture. The scope was then completely withdrawn. The patient tolerated the procedure well. There were no immediate complications. PLAN: We will plan to do an EGD in approximately three months and resurvey the site where the patient had the inflammatory appearing polypoid region. We are going to treat her with proton pump inhibitor and Carafate therapy. She has ulcer disease as well as inflammation throughout her stomach and her duodenum and I think this will significantly improve her duodenum. If this duodenal lesion does not resolve with treatment then we will consider a polypectomy here if it is indeed a true polyp and not just inflammation. We will also await her final pathology report to see what this pathology yields as well and make a final plan from there. The patient will also need a colonoscopy in approximately three years due to the findings of polyps. Colon preparation was satisfactory for review.
== END 2021-10-26 13:50 | disposition home or self-care (01) ==
LOC: SDC 08:35
PROVIDERS: ATTEND Surgery
DX: K27.9 Peptic ulcer, site unspecified, unspecified as acute or chronic, without hemorrhage or perforation (principal); R13.10 Dysphagia, unspecified; Z12.11 Encounter for screening for malignant neoplasm of colon; K31.7 Polyp of stomach and duodenum; K44.9 Diaphragmatic hernia without obstruction or gangrene; K64.4 Residual hemorrhoidal skin tags; K64.8 Other hemorrhoids; K57.30 Diverticulosis of large intestine without perforation or abscess without bleeding; D12.4 Benign neoplasm of descending colon; I10 Essential (primary) hypertension; E03.9 Hypothyroidism, unspecified; Z79.899 Other long term (current) drug therapy
CPT/HCPCS: 88305; J2250; J2704

== ENCOUNTER 2022-01-25 10:04 | Day surgery (SDC) | payer OTHER ==
[2022-01-25] MEDS ORDERED: Lactated Ringers 1,000 ML IV SCH (10:30)
[2022-01-25] MEDS ORDERED: Lactated Ringers 1,000 ML IV ONE (10:48)
[2022-01-25] MEDS ORDERED: DIPRIVAN 200 MG/20 ML IV ONE (12:01)
[2022-01-25] MEDS ORDERED: Versed 2 MG/2 ML Injection ONE (12:01)
[2022-01-25 12:59] VITALS: O2SAT 93
[2022-01-25 13:26] VITALS: BP 151/90; PULSE 63
--- NOTE | 2022-01-26 08:25 | OP ---
PROCEDURE DATE/TIME: 01/25/2022 1202 PREOPERATIVE DIAGNOSES: 1) Dysphagia. 2) History of duodenal polyp. POSTOPERATIVE DIAGNOSES: 1) Duodenal polyp with duodenitis. 2) Gastritis. 3) Stable hiatal hernia. PROCEDURE: EGD with biopsy. PROCEDURE PERFORMED BY: Olivia Edwards M.D. ESTIMATED BLOOD LOSS: Minimal. ANESTHESIA: MAC. COMPLICATIONS: None. SPECIMENS: 1) Gastric antral biopsy to rule out Helicobacter pylori. 2) Duodenal polyp biopsy and smaller duodenal polyp biopsy. HISTORY: This is a patient who presents for EGD. There is a history of a duodenal polyp although the pathology on that was previously benign. She did also have what appeared to be clinically duodenitis and so she was treated. She is having some dysphagia and presents for EGD. Risks, benefits, alternatives, H&P, consent reviewed with her and confirmed. DESCRIPTION OF PROCEDURE: She was brought to the endoscopy suite, laid in the left lateral decubitus position. The scope was gently introduced into the mouth, oropharynx, down the esophagus, stomach and to the second portion of the duodenum. The proximal and second portion of the duodenum was normal. The first portion of the duodenum showed duodenitis clinically. She also had two duodenal polyps. There is the initial polyp that was seen previously. They are about the same size. It looks to be a little under 1 cm. It appears to be inflammatory but slightly broader based but is not on a narrow pedicle. There is a second polyp that is smaller that is more at 6:00 and this polyp is more around the region of 12:00. Both polyps were biopsied and I insured that we got good nice biopsy specimens and these were sent to pathology. We insured hemostasis and then carefully withdrew the scope back into the stomach. We biopsied the antrum. She did have gastritis in her antrum as well as some gastritis throughout her body. On retroflex view, we re-visualized a small approximately 1 to 2 cm sliding hiatal hernia this was not seen well on the upper GI but it is definitely apparent and then we unretroflexed. The final inspection insured there was no bleeding and then carefully withdrew the scope. The remainder of the esophagus looked normal. There was no sign of Steven's disease. PLAN: We will await the pathology report for the duodenal polyp. I do think that these need to be excised if there is any concerning pathologic finding since they are still there and we will discuss this with the patient based on her final pathology results. The base is slightly broad here and that would be my concern and so I will discuss with her once we find out the final pathology report.
== END 2022-01-25 13:30 | disposition home or self-care (01) ==
LOC: SDC 10:04
PROVIDERS: ATTEND Surgery
DX: K31.7 Polyp of stomach and duodenum (principal); R13.10 Dysphagia, unspecified; K29.80 Duodenitis without bleeding; K29.70 Gastritis, unspecified, without bleeding; K44.9 Diaphragmatic hernia without obstruction or gangrene; Z09 Encounter for follow-up examination after completed treatment for conditions other than malignant neoplasm
CPT/HCPCS: 88305; J2250; J2704